=== PATIENT | female | born 1985 | race Caucasian/White ===

== ENCOUNTER 2019-02-07 05:30 | Day surgery (SDC) | payer OTHER ==
[~2019-02-07 05:30] MED LIST: PRENATAL1 TAB
== END 2019-02-07 15:25 | disposition home or self-care (01) ==
LOC: CIR.AMB 05:30
DX: O34.32 Maternal care for cervical incompetence, second trimester (principal)

== ENCOUNTER 2019-03-04 17:34 | Inpatient (IN) | payer OTHER ==
[~2019-03-04] VITALS: Ht 162.6 cm; Wt 75.7 kg
== END 2019-03-23 11:16 | disposition home or self-care (01) | DRG 831 ==
LOC: LDR 17:34 → OB/GYN 17:34 → LDR 03-05 04:25 → OB/GYN 03-05 18:37
PROVIDERS: ADMIT Obstetrics & Gynecology
DX: O20.9 Hemorrhage in early pregnancy, unspecified (principal); O34.32 Maternal care for cervical incompetence, second trimester; Z3A.16 16 weeks gestation of pregnancy

== ENCOUNTER 2019-08-01 02:35 | Inpatient (IN) | payer OTHER ==
[~2019-08-01] VITALS: Ht 162.6 cm; Wt 3.2 kg
[2019-08-05] MEDS ORDERED: KETO10TA2 PO (09:07)
[2019-08-05] MEDS ORDERED: MACROBID 100 M100 MG PO (09:07)
[2019-08-05] MEDS ORDERED: ENDOCET 5-3251 EACH PO (09:09)
[2019-08-05] MEDS ORDERED: NASAL MIST126 ML NASAL (09:09)
== END 2019-08-05 13:40 | disposition home or self-care (01) | DRG 785 ==
LOC: LDR 02:35 → O/R 10:13 → OB/GYN 10:38 → SURG-SUITE 14:32 → OB/GYN 08-15 13:45
PROVIDERS: ADMIT Obstetrics & Gynecology; ATTEND Obstetrics & Gynecology
PROC: 0UB70ZZ Excision of Bilateral Fallopian Tubes, Open Approach (ICD-10-PCS; 2019-08-01)
PROC: 0UCC0ZZ Extirpation of Matter from Cervix, Open Approach (ICD-10-PCS; 2019-08-01)
PROC: 4A1HXFZ Monitoring of Products of Conception, Cardiac Rhythm, External Approach (ICD-10-PCS; 2019-08-01)
PROC: 10D00Z1 Extraction of Products of Conception, Low, Open Approach (ICD-10-PCS; principal; 2019-08-01 09:15)
DX: O34.33 Maternal care for cervical incompetence, third trimester (principal); O34.211 Maternal care for low transverse scar from previous cesarean delivery; Z30.2 Encounter for sterilization; Z37.0 Single live birth; Z3A.37 37 weeks gestation of pregnancy; Z53.29 Procedure and treatment not carried out because of patient's decision for other reasons